=== PATIENT | female | born 1985 | race Caucasian/White ===

== ENCOUNTER → 2018-05-16 11:56 | Outpatient (CLI) | payer OTHER, MEDICAID, SELFPAY ==
--- NOTE | 2018-05-16 11:58 | DI.US.S_ITS ---
PROCEDURE: US OB >= 14 WEEKS FETUS INDICATIONS: DATES OUTSIDE/PRIOR DATING DATA: Last menstrual period (LMP): Unknown. LMP-based estimated date of delivery (ULISES): N./A. First dating scan (date and location): 05/16/18. Estimated date of delivery (ULISES) from first dating scan: 10/22/18. TECHNIQUE: Real-time scanning was performed of the fetus, with image documentation and biometric measurements. Endovaginal scanning: No COMPARISON: None. FINDINGS: General: A single living intrauterine gestation is present. Presentation: Breech Placenta: Placental position is posterior, without previa. Amniotic fluid index: 1.3 cm, normal range is 5-24 cm. heart rate: 153 beats per minute. Maternal cervical canal: 3.4 cm long. Normal lower limit is 2.5 cm. biometrics: Biparietal diameter: 17 weeks Head circumference: 17 weeks 3 days Abdominal circumference: 17 weeks 5 days Femur length: 16 weeks 5 days Estimated gestational age from initial scan: not applicable. Composite gestational age from present scan: 17 weeks 2 days Estimated weight and percentile: 187 g Measurement variability for biometric dating: +/- 7 days from 14 weeks to 15 weeks 6 days gestation, +/- 10 days from 16 weeks to 21 weeks 6 days gestation, +/- 2 weeks from 22 weeks to 27 weeks 6 days gestation, +/- 3 weeks for 28 weeks gestation or later. weight reference: 4500 g or EFW >90/95% is considered macrosomia or large for gestational age. EFW <10% is small for gestational age. EFW 5% or less is considered intra-uterine growth restriction. Anatomic survey limited. IMPRESSION: 1. Single living IUP present with mean composite gestational age is 17 weeks 2 days. 2. Limited anatomic survey secondary to early gestational age. Follow up recommended. Dictated by: Pancho Mahoney [facility] Interpreted: José Miguel Fink MD on 05/17/2018 at 10:39 Approved by: José Miguel Fink M.D. on 05/17/2018 at 11:16
[2018-05-16 16:05] LABS: Add Manual Diff / Slide Review NO; Basophils Percent Auto 0.3 % (0-2); Eosinophils Percent Auto 3.1 % (2-4); Hematocrit 43.8 % (36-46); Hemoglobin 14.9 g/dL (12.0-16.0); Lymphocytes Percent Auto 20.5 % (25-40); Mean Corpuscular HGB Conc 33.9 % (30-36); Mean Corpuscular Hemoglobin 30.7 PG (26-34); Mean Corpuscular Volume 90.4 fL (80-100); Monocytes Percent Auto 5.9 % (3-14); Neutrophils Absolute Auto 9300 /uL (3000-5900); Neutrophils Percent Auto 70.2 % (50-75); Platelet Count 255 X10^3/uL (150-400); Red Blood Cell Count 4.85 X10^6/uL (4.0-5.2); Red Cell Distribution Width 13.6 % (11.6-14.8); White Blood Cell Count 13.3 X10^3/uL (4.5-11.0)
[2018-05-16 16:10] LABS: Bilirubin Urine UA NEGATIVE (NEGATIVE); Color Urine UA YELLOW; Glucose Urine UA NEGATIVE (Normal); Ketones Urine UA TRACE (NEGATIVE); Leukocyte Esterase Urine UA NEGATIVE (NEGATIVE); Nitrite Urine UA NEGATIVE (Negative); Occult Blood Urine UA 1+ (Negative); Protein Urine UA NEGATIVE (Negative); Specific Gravity Urine UA >=1.030 (1.000-1.035); Urobilinogen Urine UA 0.2 E.U./dL (0.2)
[2018-05-16 16:22] LABS: Appearance Urine UA Slightly Cloudy
[2018-05-16 17:02] LABS: Hepatitis B Surface Antigen NEGATIVE s/c (NEGATIVE); Rubella Antibody IgG 45.1 IU/mL (>15)
[2018-05-16 17:22] LABS: HIV 1 and 2 Antibody NEGATIVE (NEGATIVE); Hep C Virus Ab w/Reflex Quant NEGATIVE s/c (NEGATIVE)
[2018-05-18 14:22] LABS: RPR Screen Nonreactive (Nonreactive)
[2018-05-20 12:54] LABS: HSV 2 IGG AB 1.75 index (< 0.90); HSV1IGG < 0.90 index (< 0.90)
[2018-05-20 14:12] LABS: AFP, Serum 23.6 ng/mL; Calc Gestational Age 17.3; Cigarette Smoker N; Donated Egg NOT GIVEN; Donor Egg Age NOT GIVEN; Estriol, Free 1.02 ng/mL; Inhibin A, Dimeric 122 pg/mL; Maternal Weight 248 lbs; Number of Fetuses NOT GIVEN; Previous Pregnancy Down Syndro NOT GIVEN; hCG, MoM 1.33; hCG, Serum 27.2 IU/mL
== END ==
PROVIDERS: Family Provider Family Medicine; PCP Family Medicine; Visit Provider Family Medicine
DX: Z34.92 Encounter for supervision of normal pregnancy, unspecified, second trimester (principal); Z3A.17 17 weeks gestation of pregnancy
CPT/HCPCS: 36415; 76801; 76811; 80055; 81003; 82105; 82677; 84702; 86336; 86695; 86696; 86703; 86787; 86803; 86850; 86900; 86901; 87086

== ENCOUNTER → 2018-06-13 09:56 | Outpatient (CLI) | payer OTHER, MEDICAID, SELFPAY ==
[2018-06-13 10:56] LABS: Add Manual Diff / Slide Review NO; Basophils Percent Auto 0.1 % (0-2); Eosinophils Percent Auto 3.6 % (2-4); Hematocrit 42.1 % (36-46); Hemoglobin 14.5 g/dL (12.0-16.0); Lymphocytes Percent Auto 16.6 % (25-40); Mean Corpuscular HGB Conc 34.5 % (30-36); Mean Corpuscular Hemoglobin 31.2 PG (26-34); Mean Corpuscular Volume 90.6 fL (80-100); Monocytes Percent Auto 5.8 % (3-14); Neutrophils Absolute Auto 9800 /uL (3000-5900); Neutrophils Percent Auto 73.9 % (50-75); Platelet Count 270 X10^3/uL (150-400); Red Blood Cell Count 4.64 X10^6/uL (4.0-5.2); Red Cell Distribution Width 13.4 % (11.6-14.8); White Blood Cell Count 13.2 X10^3/uL (4.5-11.0)
[2018-06-13 11:12] LABS: Alanine Aminotransferase 24 IU/L (9-52); Albumin Globulin Ratio 1.3 (1.0-2.8); Alkaline Phosphatase 57 U/L (38-126); Aspartate Aminotransferase 17 IU/L (14-36); BUN Creatinine Ratio 12.9 (6-22); Bilirubin Total 0.2 mg/dL (0.2-1.3); Blood Urea Nitrogen 9 mg/dL (7-17); Calcium 9.6 mg/dL (8.4-10.2); Carbon Dioxide 22 mmol/L (22-32); Chloride 103 mmol/L (98-107); Estimated Glomerular Filt Rate > 60.0 mL/min (>60); Globulin 3.1 g/dL (1.7-4.1); Glucose 97 mg/dL (70-100); HEMOLYSIS < 15 (0-50); Potassium 4.3 mmol/L (3.4-5.1); Sodium 138 mmol/L (137-145); Total Protein 7.1 g/dL (6.3-8.2)
== END ==
PROVIDERS: PCP Family Medicine; Visit Provider Family Medicine
DX: O10.919 Unspecified pre-existing hypertension complicating pregnancy, unspecified trimester (principal)
CPT/HCPCS: 36415; 80053; 85025

== ENCOUNTER → 2018-06-30 12:21 | Outpatient (CLI) | payer OTHER, MEDICAID, SELFPAY ==
--- NOTE | 2018-06-30 12:23 | DI.US.S_ITS ---
PROCEDURE: US OB >= 14 WEEKS FETUS INDICATIONS: ANATOMY OUTSIDE/PRIOR DATING DATA: Last menstrual period (LMP): Unknown. LMP-based estimated date of delivery (ULISES): N./A. First dating scan (date and location): 05/16/18. Estimated date of delivery (ULISES) from first dating scan: 10/22/18. TECHNIQUE: Real-time scanning was performed of the fetus, with image documentation and biometric measurements. Endovaginal scanning: No COMPARISON: [facility], OB >= 14 WEEKS FETUS, 05/16/2018, 12:09. FINDINGS: General: A single living intrauterine gestation is present. Presentation: Breech. Placenta: Placental position is posterior, without previa. Amniotic fluid index: 12.9 cm, normal range is 5-24 cm. heart rate: 139 beats per minute. Maternal cervical canal: 4.2 cm long. Normal lower limit is 2.5 cm. biometrics: Biparietal diameter: 24 weeks 0 days Head circumference: 23 weeks 6 days Abdominal circumference: 24 weeks 3 days Femur length: 23 weeks 5 days Estimated gestational age from initial scan: 23 weeks 5 days Composite gestational age from present scan: 24 weeks Estimated weight and percentile: 658 g; 59 percentile Measurement variability for biometric dating: +/- 7 days from 14 weeks to 15 weeks 6 days gestation, +/- 10 days from 16 weeks to 21 weeks 6 days gestation, +/- 2 weeks from 22 weeks to 27 weeks 6 days gestation, +/- 3 weeks for 28 weeks gestation or later. weight reference: 4500 g or EFW >90/95% is considered macrosomia or large for gestational age. EFW <10% is small for gestational age. EFW 5% or less is considered intra-uterine growth restriction. Anatomic survey: Neuro: Ventricles are non-dilated at less than 10 mm. Cisterna magna is normal at 3-11 mm. Cerebellum is normal in size and morphology. Nuchal skin fold: Normal at less than 6 mm between 14-21 weeks gestational age. Face: Nose and lips, facial profile are normal. Spine: No evidence for spina bifida. Heart: 4-chambered heart is present, with normal ventricular outflow tracts. Diaphragm: Diaphragm is intact. Stomach: Left-sided stomach is present. Kidneys: No hydronephrosis. Normal is less than 5 mm in 2nd trimester, less than 7 mm in 3rd trimester. Cord: 3-vessel cord has orthotopic insertion. Bladder: Normal in size. Extremities: All 4 extremities identified. IMPRESSION: 1. Single living IUP redemonstrated and interval growth is normal. 2. Normal anatomic survey. Dictated by: Pancho Mahoney [facility] Interpreted: Ina Hawthorne MD on 06/30/2018 at 15:42 Approved by: Ina Hawthorne M.D. on 07/01/2018 at 10:44
== END ==
PROVIDERS: PCP Family Medicine; Visit Provider Family Medicine
DX: Z36.89 Encounter for other specified antenatal screening (principal); O10.912 Unspecified pre-existing hypertension complicating pregnancy, second trimester; Z3A.24 24 weeks gestation of pregnancy
CPT/HCPCS: 76811

== ENCOUNTER → 2018-07-25 09:50 | Outpatient (CLI) | payer OTHER, MEDICAID, SELFPAY ==
[2018-07-25 11:35] LABS: Hematocrit 39.5 % (36-46); Hemoglobin 13.3 g/dL (12.0-16.0)
[2018-07-25 11:52] LABS: GTT (PREG) 1 Hour PP 50gm Dose 122 mg/dL (76-139)
== END ==
PROVIDERS: PCP Family Medicine; Visit Provider Family Medicine
DX: Z34.90 Encounter for supervision of normal pregnancy, unspecified, unspecified trimester (principal)
CPT/HCPCS: 36415; 82950; 85014; 85018

== ENCOUNTER → 2018-08-16 10:29 | Outpatient (CLI) | payer OTHER, MEDICAID, SELFPAY ==
[2018-08-16 11:21] LABS: Collection Time Urine 24 Hours; Protein (Total) Urine Random 11 mg/dL (0-12); Total Protein 24 Hour Urine 198 mg/day (42-225); Total Volume Urine 1800 mL
== END ==
PROVIDERS: PCP Family Medicine; Visit Provider Family Medicine
DX: O10.919 Unspecified pre-existing hypertension complicating pregnancy, unspecified trimester (principal)
CPT/HCPCS: 84156

== ENCOUNTER → 2018-09-27 09:19 | Outpatient (CLI) | payer OTHER, MEDICAID, SELFPAY ==
[2018-09-28 08:00] LABS: Strep Grp B PCR NEG for Grp B Strep
== END ==
PROVIDERS: PCP Family Medicine; Visit Provider Family Medicine
DX: Z34.83 Encounter for supervision of other normal pregnancy, third trimester (principal); Z3A.36 36 weeks gestation of pregnancy
CPT/HCPCS: 87653

== ENCOUNTER 2018-10-20 14:04 | Observation (INO) | payer OTHER, MEDICAID, SELFPAY | END 2018-10-20 16:20 | disposition home or self-care (01) | PROVIDERS: Admitting Provider Family Medicine; PCP Family Medicine; Visit Provider Family Medicine | DX: O26.893 Other specified pregnancy related conditions, third trimester (principal); M54.5 Low back pain; Z3A.39 39 weeks gestation of pregnancy | CPT/HCPCS: 59025; 59050; G0378; G0379 ==

== ENCOUNTER 2018-10-21 09:39 | Inpatient (IN) | payer OTHER, MEDICAID, SELFPAY ==
--- NOTE | 2018-10-21 11:37 | PM.OBHP.1 ---
OB HPI Date/Time Date of admission: 10/21/18 Date Patient Seen: 10/21/18 Time Patient Seen: 12:45 History of Present Condition Chief complaint: obs : 2 Para: 1 Estimated Date of Delivery: 10/22/18 Estimated Gestational Age (weeks): 39+6 Narrative: Tiki Lerner is a 33 year old at 39+6 weeks gestation. Initiated care at 17 weeks. Dating based on 17 week US. History of Present care: good care, initiated at week # (17), number of visits (10) and pounds weight gain (60 lbs) Dating criteria: based on 2nd trimester US only Ultrasounds: normal mid trimester US Obstetrical complications: none Medical complications: none Preadmission Labs Blood type: A (+) positive -: Antibody screen: negative, GBS status: negative, HBsAG: negative, HSV 1: negative, HSV 2: positive and RPR/VDLR: negative -: Rubella: immune and Varicella: immune HCT: 43.8 HCAB: negative Quad screen: Normal Urine: Negative 1 hr GTT: 122 Prior (ies) History: 2016 at 40+5 weeks, female 7 lbs 12 oz, epidural Evaluation Evaluation Baseline heart rate: 130 Variability: Moderate (11-25) monitor accelerations: Present monitor decelerations: Absent Contraction Frequency (minutes): 4 Category of Tracing: I Cervical dilation (cm): 4 Cervical effacement (%): 100 station: -3 [facility] Medical History Depression (Resolved) Spontaneous vaginal delivery (Resolved) Social History marital status: unmarried,living together number of children: 1 occupational status: employed ([employer] Smoking Status: Never smoker alcohol intake: former substance use type: does not use Social History marital status: unmarried,living together number of children: 1 occupational status: employed ([employer]) Smoking Status: Never smoker alcohol intake: former substance use type: does not use Meds Home Medications Medication Instructions Recorded Confirmed Type 1 tab PO DAILY 05/16/18 05/16/18 History vitamin,calcium,gbbpontt-aoax-lghlv acid tablet acyclovir 400 mg tablet 400 mg PO BID #60 tab 09/13/18 Rx Allergies Allergy/AdvReac Type Severity Reaction Status Date / Time No Known Drug Allergies Allergy Unverified 05/16/18 11:53 Review of Systems Constitutional Constitutional: Denies fatigue, Denies fever(s) and Denies headache(s) ENT Ears, Nose, Mouth, and Throat: No headache(s) Respiratory Respiratory: Denies cough Gastrointestinal Gastrointestinal: Denies vomiting Neurologic Neurologic: Denies headache(s) Endocrine Endocrine: Denies fatigue Exam Const General: healthy appearing Nutritional Appearance: obese HENMT Head: normal to inspection Ears: hearing grossly normal bilaterally Nose: external nose normal Mouth: oral mucosae normal Eyes General: appearance normal, both eyes and all related structures Resp Effort & Inspection: normal respiratory effort Auscultation: clear to auscultation bilaterally and no wheezes Cardio Rate: regular rate Rhythm: regular rhythm Heart Sounds: no murmurs Manual OB Exam: dilated 4, effaced fully and station high Presentation: vertex Estimated Weight (lbs): 8 Back/Spine/Pelvis Back: normal to inspection Extrem General: pedal edema (trace bilaterally) Objective Labs Result Diagrams: 10/21/18 12:55 Assessment and Plan Assessment and Plan Assessment and Plan narrative: 33 year old at 39+6 weeks gestation in active labor. GBS negative. 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 Plan - Expectant management, anticipate - Epidural upon request
[2018-10-21 13:04] LABS: Add Manual Diff / Slide Review NO; Basophils Absolute Auto 100 /uL (0-100); Basophils Percent Auto 0.7 % (0-2); Eosinophils Absolute Auto 300 /uL (0-450); Eosinophils Percent Auto 1.8 % (2-4); Hematocrit 41.7 % (36-46); Hemoglobin 14.7 g/dL (12.0-16.0); Lymphocytes Absolute Auto 1700 /uL (1100-4500); Lymphocytes Percent Auto 12.3 % (25-40); Mean Corpuscular HGB Conc 35.3 % (30-36); Mean Corpuscular Hemoglobin 32.3 PG (26-34); Mean Corpuscular Volume 91.5 fL (80-100); Monocytes Absolute Auto 900 /uL (0-900); Monocytes Percent Auto 6.5 % (3-14); Neutrophils Absolute Auto 11000 /uL (1500-7000); Neutrophils Percent Auto 78.7 % (50-75); Platelet Count 224 X10^3/uL (150-400); Red Blood Cell Count 4.56 X10^6/uL (4.0-5.2); Red Cell Distribution Width 14.2 % (11.6-14.8); White Blood Cell Count 13.9 X10^3/uL (4.5-11.0)
[2018-10-21] MEDS: LACTATED RINGERS 1,000 ML 100 ML IV ×2 (13:15→14:37)
[2018-10-21 14:35] VITALS: BP 130/77
[2018-10-21] MEDS: OXYTOCIN PREMIX 30 UNIT/500 ML PLAST..BAG IV (15:00)
--- NOTE | 2018-10-21 18:58 | P.PCNOB_ITS ---
Delivery date: 10/21/18 Cervical ripening method: none Induction method: none Delivery augmentation: rupture of membranes and pitocin Delivery monitor: external FHT Route of delivery: L&D Laceration Description: Perineal - 1st Degree Delivery repair: vicryl Estimated blood loss (mL): 300 Anesthesia type: Epidural Narrative: Patient is a 33-year-old now 2 at 39+6 weeks who gave on 10/21/18 at 18:28. ULISES: 10/22/18 Hospital problems: 39 weeks gestation Epidural anesthesia STAGE I: Labor Stage 1 began at 12:45 pm on 10/21/18. She received an epidural for pain control and pitocin augmentation. Complete at 16:54. AROM at 17:05 with meconium stained fluid. FHT category 1 throughout stage 1. STAGE II: Delivery The second stage of labor lasted 1 hours and 34 minutes. Spontaneous vaginal delivery occurred have 18:28. was vertex and MACK. Infant was placed on mother's abdomen immediately after delivery. Apgars were 7 and 8. 5 minutes after delivery infant was taken to the warmer where he received a brief period of CPAP then was returned to mother. STAGE III: Placenta/Cord Placenta delivered spontaneously at 6:33 p.m. after active management with a three-vessel cord and appeared intact. a first degree perineal laceration was repaired with 4 0 Vicryl in the usual fashion. Hemostasis achieved. EBL: 300 mL. Needle and sponge counts were correct. The vagina was inspected and no items were left in situ. Patient was doing well with Abhi, her and at bedside. [place] Baby 1: gender: Male Presentation: vertex Placenta delivery description: Spontaneous cord vessel description: 3 Vessels score (1 min): 7 score (5 min): 8 Plan for aftercare: Routine care
[2018-10-21 19:58] VITALS: BP 118/67
[2018-10-22] MEDS: IBUPROFEN 600 MG TABLET PO ×3 (03:03→21:30)
[2018-10-22] MEDS: DOCUSATE 250 MG CAPSULE PO (08:52)
--- NOTE | 2018-10-22 08:52 | PM.OBPN.1 ---
Subjective - OB Patient comments: no complaints, pain well controlled and tolerating diet baby status: doing well and nursing well [place] feeding status: exclusively breast feeding Narrative: Patient reports she is doing well this morning. Denies headache or vision changes. is going well. Bleeding is moderate and heavier than a period. Unsure whether she wants to go home today or tomorrow depending on the ferr schedule back to [place]. Date Patient Seen: 10/22/18 Time Patient Seen: 08:14 Exam Vital Signs (past 8 hours): Temperature 98.4? blood pressure 132/80 heart rate 86 respirations 16 Narrative Exam Narrative: General: Awake and alert, no acute distress. HEENT: NCAT, EOMI, moist oral mucosa CV: Regular rate and rhythm, no murmurs, rubs or gallops Lungs: CTAB, no wheezes, rales, or rhonchi Abdomen: Soft, nontender; bowel tones active; uterus firm 1 cm below umbilicus Extremities: Warm, trace edema bilaterally, 2+ pedal pulses bilaterally Objective Labs Result Diagrams: 10/21/18 12:55 Labs: Laboratory Results - last 24 hr 10/21/18 10/21/18 12:54 12:55 WBC 13.9 H RBC 4.56 Hgb 14.7 Hct 41.7 MCV 91.5 MCH 32.3 MCHC 35.3 RDW 14.2 Plt Count 224 Neut % (Auto) 78.7 H Lymph % (Auto) 12.3 L [place] % (Auto) 6.5 Eos % (Auto) 1.8 L Baso % (Auto) 0.7 Neut # (Auto) 82424 H Lymph # (Auto) 1700 [place] # (Auto) 900 Eos # (Auto) 300 Baso # (Auto) 100 Blood Type A Positive Antibody Screen Negative Assessment & Plan (1) 39 weeks gestation of : Status: Acute Current Visit: Yes (2) Spontaneous vaginal delivery: Status: Acute Current Visit: Yes Plan day: 1 plan OB: routine care Comments: 33-year-old 1 day after uncomplicated spontaneous vaginal delivery. She has had a couple slightly elevated blood pressures however denies headaches or vision changes. Blood pressures were borderline throughout her consistent with chronic hypertension with negative preeclampsia workup during . Blood pressure this morning is normal and patient is asymptomatic. Will recheck preeclampsia labs if blood pressures increase. Anticipated discharge home today or tomorrow. She lives on [facility]. Time Spent With Patient Total time spent is greater than 50% in coordination of care (as documented) at patient's floor/unit and/or counseling patient: less than 15 minutes
--- NOTE | 2018-10-22 08:57 | P.PNOB_ITS ---
Subjective - OB Patient comments: no complaints, pain well controlled and tolerating diet baby status: doing well and nursing well [place] feeding status: exclusively breast feeding Narrative: Patient reports she is doing well this morning. Denies headache or vision changes. is going well. Bleeding is moderate and heavier than a period. Unsure whether she wants to go home today or tomorrow depending on the ferr schedule back to [place]. Date Patient Seen: 10/22/18 Time Patient Seen: 08:14 Exam Vital Signs (past 8 hours): Temperature 98.4? blood pressure 132/80 heart rate 86 respirations 16 Narrative Exam Narrative: General: Awake and alert, no acute distress. HEENT: NCAT, EOMI, moist oral mucosa CV: Regular rate and rhythm, no murmurs, rubs or gallops Lungs: CTAB, no wheezes, rales, or rhonchi Abdomen: Soft, nontender; bowel tones active; uterus firm 1 cm below umbilicus Extremities: Warm, trace edema bilaterally, 2+ pedal pulses bilaterally Objective Labs Result Diagrams: 10/21/18 12:55 Labs: Laboratory Results - last 24 hr 10/21/18 10/21/18 12:54 12:55 WBC 13.9 H RBC 4.56 Hgb 14.7 Hct 41.7 MCV 91.5 MCH 32.3 MCHC 35.3 RDW 14.2 Plt Count 224 Neut % (Auto) 78.7 H Lymph % (Auto) 12.3 L [place] % (Auto) 6.5 Eos % (Auto) 1.8 L Baso % (Auto) 0.7 Neut # (Auto) 52638 H Lymph # (Auto) 1700 [place] # (Auto) 900 Eos # (Auto) 300 Baso # (Auto) 100 Blood Type A Positive Antibody Screen Negative Assessment & Plan (1) 39 weeks gestation of : Status: Acute Current Visit: Yes (2) Spontaneous vaginal delivery: Status: Acute Current Visit: Yes Plan day: 1 plan OB: routine care Comments: 33-year-old 1 day after uncomplicated spontaneous vaginal delivery. She has had a couple slightly elevated blood pressures however denies headaches or vision changes. Blood pressures were borderline throughout her consistent with chronic hypertension with negative preeclampsia workup during . Blood pressure this morning is normal and patient is asymptomatic. Will recheck preeclampsia labs if blood pressures increase. Anticipated discharge home today or tomorrow. She lives on [facility]. Time Spent With Patient Total time spent is greater than 50% in coordination of care (as documented) at patient's floor/unit and/or counseling patient: less than 15 minutes
--- NOTE | 2018-10-23 08:30 | P.DS_ITS ---
Discharge Providers Date of admission: 10/21/18 09:39 Discharge Date: 10/23/18 Primary care physician: Rudolph Mejia MD Consults: 10/21/18 19:57 Consult to [employer] Supervisor Routine Comment: Discharge provider: Ave Can DO Summary Date Patient Seen: 10/23/18 Time Patient Seen: 08:00 Procedures: Spontaneous vaginal delivery Epidural anesthesia Hospital Course: Patient is a 33-year-old G2 now P2 after uncomplicated spontaneous vaginal delivery at 39 and 6 weeks gestation on 10/21/18. Patient presented in active labor and delivered a healthy male . required a brief period of CPAP after delivery without further complications. From the beginning of her blood pressures were borderline elevated at times and always improved on recheck, likely chronic hypertension. Preeclampsia labs during were negative. she had a couple slightly elevated blood pressures very similar to during her . Blood pressures came down on recheck. Denied headaches, vision changes, right upper quadrant pain or lower extremity edema. Patient was counseled extensively about symptoms of preeclampsia and advised to return should any of the symptoms develop. Breast-feeding was going very well. Patient was ambulating, eating, voiding and stooling without issue. Bleeding was decreasing. Pain well controlled with ibuprofen. Peripartum Data Infant Delivery Method: Natural Vaginal Laceration description: Perineal - 1st Degree complications: none [place] 1: Gender: Male Disposition of : home Discharge Diagnosis (1) 39 weeks gestation of : Status: Acute (2) Spontaneous vaginal delivery: Status: Acute Status at Discharge Cognitive/behavioral status at discharge: at baseline, oriented Overall status at discharge: patient is progressing back to baseline Time Spent with Patient Total time spent providing and/or coordinating discharge services: Less than 30 minutes Objective Labs Result Diagrams: 10/21/18 12:55 Exam Vital Signs (past 8 hours): Temperature 98.4? Blood pressure 131/81 Heart rate 98 Respirations 16 General: Awake and alert, no acute distress. HEENT: NCAT, EOMI, moist oral mucosa CV: Regular rate and rhythm, no murmurs, rubs or gallops Lungs: CTAB, no wheezes, rales, or rhonchi Abdomen: Soft, nontender; bowel tones active; uterus firm 1 cm below umbilicus Extremities: Warm, no edema, 2+ pedal pulses bilaterally Discharge Plan Discharge Plan Patient Disposition: Home Discharge comment: Call for fevers, bleeding through more than a pad an hour or severe pain. Counseled patient also to call for headaches, vision changes or new lower extremity swelling. Discharge Med Rec/Prescriptions Prescriptions: New ibuprofen 600 mg Tablet 600 mg PO Q6HR PRN (Reason: Pain, Mild (1-3)) Qty: 30 RF: 0 docusate sodium 250 mg Capsule 250 mg PO DAILY Qty: 30 RF: 0 Continued prenat.vits,alex,vwd-phxf-jsuts tablet 1 tab PO DAILY RF: 0 Discontinued acyclovir 400 mg tablet 400 mg PO BID Qty: 60 RF: 1 Follow up/Referrals: Ave Can DO [Physician] - 6 Weeks Rudolph Mejia MD [Primary Care Provider] - Discharge Data Primary Care Provider: Rudolph Mejia Attending Provider: Ave Can Admit Date/Time: 10/21/18 09:39
[2018-10-23 08:51] VITALS: BP 118/67; PULSE 76; TEMP 36.3
== END 2018-10-23 09:35 | disposition home or self-care (01) | DRG 560 ==
PROVIDERS: Admitting Provider Family Medicine; PCP Family Medicine; Visit Provider Family Medicine
DX: O98.32 Other infections with a predominantly sexual mode of transmission complicating childbirth (principal); Z3A.39 39 weeks gestation of pregnancy; Z37.0 Single live birth; B00.9 Herpesviral infection, unspecified
CPT/HCPCS: 01967; 59025; 59050; 59409; 85025; 86850; 86900; 86901; G0378; G0379; J2590

== ENCOUNTER → 2023-04-27 09:54 | Outpatient (CLI) | payer OTHER, MEDICAID, SELFPAY ==
[2023-04-27 18:59] LABS: Add Manual Diff / Slide Review NO; Basophils Absolute Auto 100 /uL (0-100); Basophils Percent Auto 0.6 % (0-2); Eosinophils Absolute Auto 300 /uL (0-450); Eosinophils Percent Auto 2.6 % (2-4); Hematocrit 45.5 % (36-46); Hemoglobin 15.9 g/dL (12.0-16.0); Lymphocytes Absolute Auto 1700 /uL (1100-4500); Lymphocytes Percent Auto 18.1 % (25-40); Mean Corpuscular HGB Conc 34.8 % (30-36); Monocytes Absolute Auto 800 /uL (0-900); Monocytes Percent Auto 8.1 % (3-14); Neutrophils Absolute Auto 6800 /uL (1500-7000); Neutrophils Percent Auto 70.6 % (50-75); Platelet Count 249 X10^3/uL (150-400); Red Blood Cell Count 5.11 X10^6/uL (4.0-5.2); White Blood Cell Count 9.6 X10^3/uL (4.5-11.0)
[2023-04-27 19:10] LABS: BUN Creatinine Ratio 16.7 (6-22); Blood Urea Nitrogen 13 mg/dL (7-17); Calcium 9.9 mg/dL (8.4-10.2); Carbon Dioxide 26 mmol/L (22-32); Chloride 100 mmol/L (98-107); Estimated Glomerular Filt Rate > 60 mL/min (>60); Glucose 115 mg/dL (70-100); HEMOLYSIS < 15 (0-50); Potassium 4.1 mmol/L (3.4-5.1); Sodium 137 mmol/L (137-145)
[2023-04-27 19:37] LABS: TSH w/ Reflex to FT4 0.96 uIU/mL (0.47-4.68)
== END ==
PROVIDERS: PCP Family Medicine; Visit Provider Family Medicine
DX: R00.0 Tachycardia, unspecified (principal); R03.0 Elevated blood-pressure reading, without diagnosis of hypertension; T65.91XA Toxic effect of unspecified substance, accidental (unintentional), initial encounter; Z87.59 Personal history of other complications of pregnancy, childbirth and the puerperium
CPT/HCPCS: 80048; 84443; 85025

== ENCOUNTER → 2023-05-20 08:24 | Outpatient (CLI) | payer OTHER, MEDICAID, SELFPAY | PROVIDERS: PCP Family Medicine; Visit Provider Family Medicine | DX: I10 Essential (primary) hypertension (principal) | CPT/HCPCS: 82088; 84244 ==

== ENCOUNTER → 2023-11-04 10:55 | Outpatient (CLI) | payer OTHER, MEDICAID, SELFPAY ==
[2023-11-04 20:14] LABS: Alanine Aminotransferase 22 IU/L (<35); Albumin 4.7 g/dL (3.5-5.0); Albumin Globulin Ratio 1.7 (1.0-2.8); Alkaline Phosphatase 62 U/L (38-126); Aspartate Aminotransferase 27 IU/L (14-36); BUN Creatinine Ratio 17.3 (6-22); Bilirubin Total 0.8 mg/dL (0.2-1.3); Blood Urea Nitrogen 14 mg/dL (7-17); Calcium 9.8 mg/dL (8.4-10.2); Carbon Dioxide 26 mmol/L (22-32); Chloride 104 mmol/L (98-107); Estimated Glomerular Filt Rate > 60 mL/min (>60); Globulin 2.7 g/dL (1.7-4.1); Glucose 104 mg/dL (70-100); HEMOLYSIS < 15 (0-50); Sodium 138 mmol/L (137-145); Total Protein 7.4 g/dL (6.3-8.2)
== END ==
PROVIDERS: PCP Family Medicine; Visit Provider Family Medicine
DX: I10 Essential (primary) hypertension (principal)
CPT/HCPCS: 80053; 82310; 83970

== ENCOUNTER → 2024-05-04 10:25 | Outpatient (CLI) | payer OTHER, MEDICAID, SELFPAY ==
[2024-05-04 20:14] LABS: Add Manual Diff / Slide Review NO; Basophils Absolute Auto 0 /uL (0-100); Basophils Percent Auto 0.7 % (0-2); Eosinophils Absolute Auto 500 /uL (0-450); Eosinophils Percent Auto 6.9 % (2-4); Hematocrit 45.1 % (36-46); Hemoglobin 15.4 g/dL (12.0-16.0); Lymphocytes Absolute Auto 1900 /uL (1100-4500); Lymphocytes Percent Auto 27.1 % (25-40); Mean Corpuscular HGB Conc 34.3 % (30-36); Mean Corpuscular Hemoglobin 31.6 PG (26-34); Mean Corpuscular Volume 92.2 fL (80-100); Monocytes Absolute Auto 500 /uL (0-900); Monocytes Percent Auto 7.5 % (3-14); Neutrophils Absolute Auto 4100 /uL (1500-7000); Neutrophils Percent Auto 57.8 % (50-75); Platelet Count 292 X10^3/uL (150-400); Red Blood Cell Count 4.89 X10^6/uL (4.0-5.2); Red Cell Distribution Width 13.1 % (11.6-14.8); White Blood Cell Count 7.1 X10^3/uL (4.5-11.0)
[2024-05-04 20:31] LABS: Alanine Aminotransferase 17 IU/L (<35); Albumin 4.6 g/dL (3.5-5.0); Albumin Globulin Ratio 1.4 (1.0-2.8); Alkaline Phosphatase 51 U/L (38-126); Aspartate Aminotransferase 23 IU/L (14-36); BUN Creatinine Ratio 18.7 (6-22); Bilirubin Total 0.6 mg/dL (0.2-1.3); Blood Urea Nitrogen 17 mg/dL (7-17); Carbon Dioxide 27 mmol/L (22-32); Chloride 100 mmol/L (98-107); Cholesterol 203 mg/dL (140-199); Estimated Glomerular Filt Rate > 60 mL/min (>60); Globulin 3.4 g/dL (1.7-4.1); Glucose 103 mg/dL (70-100); HDL Cholesterol 44 mg/dL (40-60); HEMOLYSIS < 15 (0-50); LDL Cholesterol Calculated 123 mg/dL (<100); Potassium 4.2 mmol/L (3.4-5.1); Sodium 136 mmol/L (137-145); Triglycerides 178 mg/dL (35-150)
[2024-05-04 20:57] LABS: Thyroid Stimulating Hormone 0.984 uIU/mL (0.47-4.68)
== END ==
PROVIDERS: PCP Family Medicine; Visit Provider Family Medicine
DX: I10 Essential (primary) hypertension (principal); E66.01 Morbid (severe) obesity due to excess calories; Z13.6 Encounter for screening for cardiovascular disorders; Z68.35 Body mass index [BMI] 35.0-35.9, adult
CPT/HCPCS: 80053; 80061; 83735; 84443; 85025

== ENCOUNTER → 2024-11-23 09:25 | Outpatient (CLI) | payer OTHER, MEDICAID, SELFPAY ==
[2024-11-23 19:03] LABS: Add Manual Diff / Slide Review NO; Basophils Absolute Auto 100 /uL (0-100); Basophils Percent Auto 0.8 % (0-2); Eosinophils Absolute Auto 500 /uL (0-450); Eosinophils Percent Auto 7.1 % (2-4); Hematocrit 44.5 % (36-46); Hemoglobin 15.1 g/dL (12.0-16.0); Lymphocytes Absolute Auto 1900 /uL (1100-4500); Lymphocytes Percent Auto 27.2 % (25-40); Mean Corpuscular HGB Conc 33.9 % (30-36); Mean Corpuscular Hemoglobin 31.5 PG (26-34); Mean Corpuscular Volume 92.9 fL (80-100); Monocytes Absolute Auto 500 /uL (0-900); Monocytes Percent Auto 7.7 % (3-14); Neutrophils Absolute Auto 4000 /uL (1500-7000); Neutrophils Percent Auto 57.2 % (50-75); Platelet Count 249 X10^3/uL (150-400); Red Blood Cell Count 4.79 X10^6/uL (4.0-5.2); Red Cell Distribution Width 13.2 % (11.6-14.8)
[2024-11-23 19:20] LABS: Alanine Aminotransferase 23 IU/L (<35); Albumin 4.6 g/dL (3.5-5.0); Albumin Globulin Ratio 1.7 (1.0-2.8); Alkaline Phosphatase 49 U/L (38-126); Aspartate Aminotransferase 28 IU/L (14-36); BUN Creatinine Ratio 20.5 (6-22); Bilirubin Total 0.8 mg/dL (0.2-1.3); Blood Urea Nitrogen 17 mg/dL (7-17); Calcium 9.6 mg/dL (8.4-10.2); Carbon Dioxide 26 mmol/L (22-32); Chloride 104 mmol/L (98-107); Cholesterol 214 mg/dL (140-199); Estimated Glomerular Filt Rate > 60 mL/min (>60); Globulin 2.7 g/dL (1.7-4.1); Glucose 101 mg/dL (70-99); HDL Cholesterol 44 mg/dL (40-60); HEMOLYSIS < 15 (0-50); LDL Cholesterol Calculated 142 mg/dL (<100); Potassium 4.3 mmol/L (3.4-5.1); Sodium 138 mmol/L (137-145); Total Protein 7.3 g/dL (6.3-8.2); Triglycerides 140 mg/dL (35-150)
[2024-11-23 19:23] LABS: Hemoglobin A1C% w Est Avg Glu 5.2 % (4.0-6.0)
== END ==
PROVIDERS: PCP Family Medicine; Visit Provider Family Medicine
DX: I10 Essential (primary) hypertension (principal); E78.2 Mixed hyperlipidemia; E66.01 Morbid (severe) obesity due to excess calories; Z30.431 Encounter for routine checking of intrauterine contraceptive device
CPT/HCPCS: 80053; 80061; 83036; 84443; 85025